=== PATIENT | male | born 1990 | race Caucasian/White ===

== ENCOUNTER 2023-01-02 11:11 | Emergency (ER) | payer SELFPAY ==
[2023-01-02] MEDS ORDERED: HYDROcodone/Acetaminophen 10/325 mg Tablet ONE (12:13)
== END 2023-01-02 12:40 | disposition home or self-care (01) ==
LOC: CSHERS 11:11
DX: S82.891A Other fracture of right lower leg, initial encounter for closed fracture (principal); W18.40XA Slipping, tripping and stumbling without falling, unspecified, initial encounter